=== PATIENT | female | born 1990 | race Caucasian/White ===

== ENCOUNTER 2019-04-25 16:30 | Outpatient (CLI) | payer MEDICAID ==
[~2019-04-25] VITALS: Ht 160 cm; Wt 62.8 kg
[2019-04-25] MEDS ORDERED: PREN-93 PO (17:26)
[2019-04-25] MEDS ORDERED: FERR325T5 PO (17:26)
[2019-04-25 17:27] VITALS: Ht 160 cm; Wt 62.8 kg
[2019-04-25] MEDS ORDERED: CALC600T5 PO (17:27)
[2019-04-25 17:28] VITALS: BP 138/87; PULSE 60; RESP 18
--- NOTE | 2019-04-25 20:13 | PN ---
Triage Information Date/Time Reason for visit: Patient sent from the clinic for evaluation of preeclampsia Weeks of Gestation Patient is a 28-year-old 1 para 0 at 38 weeks and 6 days of gestation with estimated date of delivery May 03, 2019 She presents from the clinic with elevated blood pressures 138/87 Patient denies headache or blurred vision. Patient denies shortness of breath or chest pain denies right upper quadrant pain. She reports of having elevated blood pressures periodically in the last week /Para 1 para 0 Diabetes: none Hypertention: induced Objective Vital Signs Date Temp Pulse Resp B/P (MAP) Pulse Ox O2 O2 Flow FiO2 Time Delivery Rate 04/25/19 98.8 60 18 138/87 Room Air 17:28 (104) Heart Rate: 140's Heart Rate Comments heart rate tracing category 1 Contractions: None Results/Medications Result Diagram: 04/25/19 1743 04/25/19 1743 Results 24 hrs Laboratory Tests Test 04/25/19 17:43 04/25/19 18:00 White Blood Count 9.0 Red Blood Count 3.98 L Hemoglobin 12.4 Hematocrit 36.5 L Mean Corpuscular Volume 91.7 Mean Corpuscular Hemoglobin 31.2 Mean Corpuscular Hemoglobin Concent 34.0 Red Cell Distribution Width 13.1 Platelet Count 233 Mean Platelet Volume 11.1 H Immature Granulocytes % 0.700 H Neutrophils % 74.9 Lymphocytes % 18.9 Monocytes % 5.0 Eosinophils % 0.2 Basophils % 0.3 Nucleated Red Blood Cells % 0.0 Immature Granulocytes # 0.060 H Neutrophils # 6.7 Lymphocytes # 1.7 Monocytes # 0.5 Eosinophils # 0.0 Basophils # 0.0 Nucleated Red Blood Cells # 0.0 Prothrombin Time 11.9 Prothrombin Time Ratio 0.9 INR International Normalized Ratio 0.87 Activated Partial Thromboplast Time 25.6 Fibrinogen 411.0 Sodium Level 136 Potassium Level 3.9 Chloride Level 104 Carbon Dioxide Level 20 L Anion Gap 12 Blood Urea Nitrogen 12 Creatinine 0.62 Est Glomerular Filtrat Rate mL/min > 60 Glucose Level 91 Uric Acid 6.0 Calcium Level 9.4 Total Bilirubin 0.3 Direct Bilirubin 0.00 Indirect Bilirubin 0.3 Aspartate Amino Transf (AST/SGOT) 23 Alanine Aminotransferase (ALT/SGPT) 16 Alkaline Phosphatase 208 H Total Protein 6.9 Albumin 3.6 Globulin 3.30 H Albumin/Globulin Ratio 1.09 Urine Color YELLOW Urine Clarity CLEAR Urine pH 7.0 Urine Specific [place] 1.011 Urine Ketones NEGATIVE Urine Nitrite NEGATIVE Urine Bilirubin NEGATIVE Urine Urobilinogen NEGATIVE Urine Leukocyte Esterase NEGATIVE Urine Hemoglobin NEGATIVE Urine Glucose NEGATIVE Urine Total Protein NEGATIVE Imaging Results PROCEDURE: US OB. CLINICAL INDICATION: Size and dates , hypertension TECHNIQUE: Multiple sonographic images of the pelvis and gravid uterus were obtained. The images were reviewed on a PACS workstation. COMPARISON: No prior studies are available for comparison. FINDINGS: Gestation: Single live intrauterine gestation. Cardiac activity: 146 beats per minute. Presentation: Vertex. Placenta: Location: Fundal Appearance: No previa or abruption. Measurements: BPD = 9.5 cm, 38 weeks and 6 days HC = 33.6 cm, 38 weeks and 3 days AC = 34.1 cm, 38 weeks and 0 days FL = 7.5 cm, 38 weeks and 4 days Gestational Age: AUA estimated gestational age: 38 weeks 3 days LMP estimated gestational age: 38 weeks 6 days AUA estimated date of delivery: 05/06/19 The EFW = 3448 g, 53.8%ile based on LMP age. RPTAT: AA IMPRESSION: Single live intrauterine gestation of 38 weeks 3 days by ultrasound criteria. .Durga Gamez MD, Date Time Electronically viewed and signed by .Durga Gamez MD, MD on 04/25/2019 17:46 .S/ CC: TERESA GRANADOS MD [phone] PROCEDURE: US OB biophysical profile. CLINICAL INDICATION: decreased movements, hypertension TECHNIQUE: Multiple sonographic images of the pelvis were obtained. The bryant ges were reviewed on a PACS workstation. COMPARISON: No prior studies are available for comparison. FINDINGS: There is a single live intrauterine gestation. Cardiac activity is present with 148 beats per minute. There is a vertex presentation. The placenta is anterior fundal. There is no evidence of placental abruption. MANISH = 13.4 cm. Biophysical profile: movement 2/2 tone 2/2. breathing 2/2 MANISH 2/2 Total 06/22 RPTAT: AA . IMPRESSION: Normal biophysical profile. . .Durga Gamez MD, MD Date Time Electronically viewed and signed by .Durga Gamez MD, on 04/25/2019 17:50 .S/ CC: TERESA GRANADOS MD [phone] Disposition: Discharge Assessment/Plan I discussed with the patient in details that I recommend for her to be admitted and to be induced but the patient declines to be admitted at this time She alternatively agreed to do a 24-hour urine protein collection and return in 24-48 hours for BPP and NST and blood pressure recheck and possible induction Prescription for labetalol 100 mg p.o. twice daily was given She was instructed in details to return immediately if she develops headache, blurry vision, chest pain or right upper quadrant pain or blood pressures of greater than 140/90 kick count instructions were given Labor precautions were given Patient has agreed to return in 24-48 hours for follow-up TRACIE MCDONALD MD Apr 25, 2019 20:13
--- NOTE | 2019-04-25 20:27 | TRIAGE ---
OB Triage Datetime Report Generated by CPN: 04/25/2019 20:26 Datetime: 04/25/2019 19:46 Stage of : OB Triage Datetime: 04/25/2019 19:32 Labor Evaluation Frequency: 0 Pattern: Normal: <= 5 Contractions in 10 Minutes Resting Tone [place]: Relaxed Heart Rate FHR Baseline Rate: 140 Monitor Mode: External US Variability: Moderate 6-25 bpm Accelerations: 10X10 Decelerations: None Category: Category I Pain Assessment Pain Scale: 0 Pain Presence: None/Denies Pain Type: N/A Pain Goal: 3 Pain Relief Measures: Comfort Measures Datetime: 04/25/2019 18:24 Labor Evaluation Frequency: 0 Monitor Mode: External Pattern: Normal: <= 5 Contractions in 10 Minutes Resting Tone [place]: Relaxed Heart Rate FHR Baseline Rate: 145 Monitor Mode: External US Variability: Moderate 6-25 bpm Accelerations: None Decelerations: None Category: Category I Pain Assessment Pain Scale: 0 Pain Presence: None/Denies Pain Type: N/A Pain Goal: 3 Pain Relief Measures: Comfort Measures Datetime: 04/25/2019 17:45 Stage of : OB Triage Assessment Type: Triage Maternal Assessment Level of Consciousness: Keenly Alert, Responsive DTR's/Clonus: DTRs 2+; No Clonus Headache: Denies Blurred Vision: No Respiratory Effort: Unlabored; Regular Rhythm; Equal Expansion Breath Sounds, Left: Clear and Equal Breath Sounds, Right: Clear and Equal Nausea/Vomiting: Denies RUQ Epigastric Pain: Denies Facial Edema: None Temperature Route: Axillary Fall Risk Assessment History of Falling: (0) No Secondary Diagnosis: (0) No Ambulatory Aid: (0) Bedrest/Nurse Assist IV Therapy: (0) No Gait: (0) Normal/Bedrest/Immobile Mental Status: (0) Oriented to Own Ability Fall Score: 0 Fall Risk Score Definition: No Risk: No action required Labor Evaluation Frequency: 0 Monitor Mode: External Pattern: Normal: <= 5 Contractions in 10 Minutes Resting Tone [place]: Relaxed Heart Rate FHR Baseline Rate: 145 Monitor Mode: External US Variability: Moderate 6-25 bpm Accelerations: 10X10 Decelerations: None Category: Category I Pain Assessment Pain Scale: 0 Pain Presence: None/Denies Pain Type: N/A Pain Goal: 3 Pain Relief Measures: Comfort Measures Datetime: 04/25/2019 17:43 Time of Arrival: 04/25/2019 16:22 EGA: 38.6 Arrived By: Ambulatory Arrived From: Home Chief Complaint: REFERRED FROM OFFICE FOR PIH, DENIES H/A, BLURRY VISION AND EPIGASTRIC PAIN, DENIE S UC'S, BLEEDING OR LEAKING Movement: Present Contractions: Denies/Absent Rupture of Membranes: Denies Vaginal Bleeding: None Vaginal Discharge: Denies Recent Sexual Intercouse: Denies Abdominal Trauma: Not Applicable Patient Complaints: None Time Provider Notified: 04/25/2019 19:46 Provider Notified: joseph Initial Plan: MONITOR, PIH PANEL, BPP, EFW
== END 2019-04-25 20:16 | disposition home or self-care (01) ==
LOC: L-D 16:30 → OBT 16:30 → L-D 17:58 → OBT 20:16
PROVIDERS: ATTEND Obstetrics & Gynecology
DX: O14.93 Unspecified pre-eclampsia, third trimester (principal); O13.3 Gestational [pregnancy-induced] hypertension without significant proteinuria, third trimester; Z3A.38 38 weeks gestation of pregnancy
CPT/HCPCS: 76815; 76818; 80053; 81003; 84560; 85025; 85384; 85610; 85730; Z7500; G0463

== ENCOUNTER 2019-04-28 14:50 | Outpatient (CLI) | payer MEDICAID ==
[~2019-04-28] VITALS: Ht 160 cm; Wt 62.8 kg
[~2019-04-28 14:50] MED LIST: CALC600T5 PO; FERR325T5 PO; PREN-93 PO
[2019-04-28 15:14] VITALS: BP 119/84; PULSE 65; RESP 18; Ht 160 cm; Wt 62.8 kg
[2019-04-28] MEDS ORDERED: LABE100T7 PO (15:16)
--- NOTE | 2019-04-28 19:52 | HP ---
Date/Time of Note Date/Time of Note DATE: 04/28/19 TIME: 19:49 OB - History Hx of Present Free Text/Dictation 28-year-old 1 para 0 at 39 weeks and 2 days of gestation with estimated date of delivery May 03, 2019 Patient presents after 24-hour urine protein collection which is 270 She is currently on labetalol 100 mg p.o. twice daily for gestational hypertension She reports positive movement, denies vaginal bleeding and leaking fluid, denies uterine contractions GBS status is Estimated Due Date: May 03, 2019 : 1 Para: 0 Care: Good Care Obstetrical Complications: Gestational Hypertension Past Family/Social History * Past Medical, Surgical, Family and Obstetric Histories reviewed from chart. OB Admission Exam Vital Signs Vital Signs Vital Signs Date Temp Pulse Resp B/P (MAP) Pulse Ox O2 O2 Flow FiO2 Time Delivery Rate 04/28/19 98.0 65 18 119/84 15:14 (96) Physical Exam HEENT: WNL Heart: Rhythm Normal Lungs: Clear, Equal Abdomen: WNL Extremities: Normal Reflexes: Normal Cervical Dilatation: None Membranes: Intact Heart Rate: 140's Accelerations: Accelerations Present Decelerations: No Decelerations Varibility: Moderate Contractions on Admission: None Last 72 hours Lab Results CBC & BMP 04/28/19 16:30 Liver Function Test 04/28/19 16:30 Alanine Aminotransferase (ALT/SGPT) 22 Albumin 3.7 Alkaline Phosphatase 210 H Aspartate Amino Transf (AST/SGOT) 39 Direct Bilirubin 0.00 Total Protein 7.2 Urine Results - 72 Hrs Test 04/28/19 14:30 Urine Random Creatinine 21.49 mg/dl (20-320) Urine Collection Duration 24 hrs Urine Total Volume 24 Hours 1500 ml/24hrs Urine Creatinine Timed 24 hrs Creatinine Clearance 36.1 mls/min (84.0-162.0) L Urine Total Volume (Protein) 1500 mls Urine Total Protein 24 Hour 270.0 mg/24hrs (42.0-225.0) H PROCEDURE: US OB. CLINICAL INDICATION: Hypertension TECHNIQUE: Multiple sonographic images of the pelvis were obtained. The images were reviewed on a PACS workstation. COMPARISON: 04/25/2019 FINDINGS: There is a single live intrauterine . cardiac activity is identified at a rate of 150 beats per minute. presentation is cephalic. Placenta is anterior grade II. Biophysical profile score is as follows: Breathing 2 Movements 2 Tone 2 Fluid volume 2 Amniotic fluid index = 11 cm Total biophysical profile score = 8/8 IMPRESSION: Biophysical profile score = 8/8 RPTAT: HH .Brant Buck MD, MD Date Time Electronically viewed and signed by .Brant Buck MD, MD on 04/28/2019 16:01 .W/ CC: LUCIANA HAWLEY MD [phone] PROCEDURE: US OB. CLINICAL INDICATION: Size and dates , hypertension TECHNIQUE: Multiple sonographic images of the pelvis and gravid uterus were obtained. The images were reviewed on a PACS workstation. COMPARISON: No prior studies are available for comparison. FINDINGS: Gestation: Single live intrauterine gestation. Cardiac activity: 146 beats per minute. Presentation: Vertex. Placenta: Location: Fundal Appearance: No previa or abruption. Measurements: BPD = 9.5 cm, 38 weeks and 6 days HC = 33.6 cm, 38 weeks and 3 days AC = 34.1 cm, 38 weeks and 0 days FL = 7.5 cm, 38 weeks and 4 days Gestational Age: AUA estimated gestational age: 38 weeks 3 days LMP estimated gestational age: 38 weeks 6 days AUA estimated date of delivery: 05/06/19 The EFW = 3448 g, 53.8%ile based on LMP age. RPTAT: AA IMPRESSION: Single live intrauterine gestation of 38 weeks 3 days by ultrasound criteria. .Durga Gamez MD, Date Time Electronically viewed and signed by .Durga Gamez MD, on 04/25/2019 17:46 .S/ CC: TERESA GRANADOS MD [phone] OB Assessment/Plan Reason for admission: other (Induction for gestational hypertension) Induction Method: per Misoprostol Protocol Other plan: Admit to labor and delivery Induction for gestational hypertension per protocol Continue with labetalol 100 mg p.o. twice daily Pain meds as needed Patient decided to leave AGAINST MEDICAL ADVICE despite the recommendation made by me and Dr. Hawley for her to stay and to be induced Charge nurse Clyde and the electrician powerhouse were informed Patient agreed to return tomorrow for NST and BPP Copies To: CC: TERESA GRANADOS MD ; TRACIE MCDONALD MD Apr 28, 2019 19:52
== END 2019-04-28 20:50 | disposition left against medical advice (07) ==
LOC: OBT 14:50 → L-D 14:51 → OBT 20:50
PROVIDERS: ATTEND Obstetrics & Gynecology
DX: O13.3 Gestational [pregnancy-induced] hypertension without significant proteinuria, third trimester (principal); Z3A.39 39 weeks gestation of pregnancy
CPT/HCPCS: 76818; 80053; 82575; 84156; 84560; 85025; 85384; 85610; 85730; Z7500; G0463

== ENCOUNTER 2019-04-30 06:40 | Inpatient (IN) | payer MEDICAID ==
[~2019-04-30] VITALS: Ht 162.6 cm; Wt 63.6 kg
[~2019-04-30 06:40] MED LIST changes: +LABE100T7 PO
[2019-04-30 07:23] VITALS: Ht 162.6 cm; Wt 63.6 kg
[2019-04-30 07:24] VITALS: BP 138/97; PULSE 67
[2019-04-30] MEDS ORDERED: OXYTOCIN 30 UNITS/LR 500 ML IV SCH ×4 (07:30→22:59)
[2019-04-30] MEDS ORDERED: CARBOPROST 250 MCG INJ IM PRN ×2 (07:30→23:00)
[2019-04-30] MEDS ORDERED: MISOPROSTOL 200 MCG TAB PR PRN ×2 (07:30→23:00)
[2019-04-30] MEDS ORDERED: OXYTOCIN 30 UNITS/LR 500 ML IV PRN ×2 (07:30→23:00)
[2019-04-30] MEDS ORDERED: METHYLERGONOVINE 0.2 MG INJ IM PRN ×2 (07:30→23:00)
[2019-04-30] MEDS ORDERED: LIDOCAINE 1% (MPF) 30 ML INJ INJ PRN (07:30)
--- NOTE | 2019-04-30 07:33 | TRIAGE ---
OB Triage Datetime Report Generated by CPN: 04/30/2019 07:33 Datetime: 04/30/2019 07:00 Membrane Status: Ruptured Datetime: 04/30/2019 06:55 Vaginal Exam Dilatation (cms): 2.0 Effacement (%): 80 Station: -1 Exam By: Luis F VELEZ Membrane Status: Ruptured Membranes Ruptured Date/Time: 04/30/2019 05:50 Membranes Rupture Method: Spontaneous Amniotic Fluid Color: Clear Vaginal Bleeding: Normal Show Nitrazine: Positive Datetime: 04/30/2019 06:49 Stage of : OB Triage Maternal Assessment Level of Consciousness: Keenly Alert, Responsive DTR's/Clonus: DTRs 2+; No Clonus Headache: Denies Blurred Vision: No Respiratory Effort: Unlabored; Regular Rhythm; Equal Expansion Breath Sounds, Left: Clear and Equal Breath Sounds, Right: Clear and Equal Nausea/Vomiting: Denies RUQ Epigastric Pain: Denies Lower Extremities Edema: None Degree: None Upper Extremities Edema: None Degree: None Facial Edema: None Temperature Route: Oral Fall Risk Assessment History of Falling: (0) No Secondary Diagnosis: (0) No Ambulatory Aid: (0) Bedrest/Nurse Assist IV Therapy: (0) No Gait: (0) Normal/Bedrest/Immobile Mental Status: (0) Oriented to Own Ability Pain Assessment Pain Scale: 5 Datetime: 04/30/2019 06:30 Time of Arrival: 04/30/2019 06:30 EGA: 39.4 Arrived By: Wheelchair Arrived From: Home Chief Complaint: SROM AT 0550 Movement: Present Contractions: Irregular Time Contractions Began: 04/30/2019 05:50 Rupture of Membranes: Ruptured Vaginal Bleeding: Normal Show Vaginal Discharge: Present Recent Sexual Intercouse: Denies Abdominal Trauma: Not Applicable Patient Complaints: Other Time Provider Notified: 04/30/2019 07:15 Provider Notified: DR. MULLEN Initial Plan: ZAHEER SUE, CALL OB Datetime: 04/28/2019 20:29 Labor Evaluation Frequency: Occasional Monitor Mode: External Duration (sec)2399: 40-70 Quality: Mild Pattern: Normal: <= 5 Contractions in 10 Minutes Resting Tone Gratis: Relaxed Heart Rate FHR Baseline Rate: 145 Monitor Mode: External US FHR Baseline Changes: No Baseline Change Variability: Moderate 6-25 bpm Accelerations: 15X15 Decelerations: None Category: Category I Datetime: 04/28/2019 19:50 Labor Evaluation Frequency: Occasional Monitor Mode: External Duration (sec)2399: 40-50 Quality: Mild Pattern: Normal: <= 5 Contractions in 10 Minutes Resting Tone Gratis: Relaxed Heart Rate FHR Baseline Rate: 145 Monitor Mode: External US Variability: Moderate 6-25 bpm Accelerations: 15X15 Decelerations: possible decel @1910 - unable to determine when uc was Datetime: 04/28/2019 19:21 Stage of : OB Triage Datetime: 04/28/2019 19:15 Stage of : OB Triage Datetime: 04/28/2019 18:31 Stage of : OB Triage Datetime: 04/28/2019 18:12 Labor Evaluation Frequency: 0 Monitor Mode: External Pattern: Normal: <= 5 Contractions in 10 Minutes Resting Tone [place]at[place]: Relaxed Heart Rate FHR Baseline Rate: 140 Monitor Mode: External US Variability: Moderate 6-25 bpm Accelerations: None Decelerations: None Category: Category II Pain Assessment Pain Scale: 0 Pain Presence: None/Denies Pain Type: N/A Pain Goal: 3 Pain Relief Measures: Comfort Measures Datetime: 04/28/2019 17:39 Stage of : OB Triage Datetime: 04/28/2019 17:10 Labor Evaluation Frequency: 0 Monitor Mode: External Pattern: Normal: <= 5 Contractions in 10 Minutes Resting Tone [place]at[place]: Relaxed Heart Rate FHR Baseline Rate: 145 Monitor Mode: External US Variability: Moderate 6-25 bpm Accelerations: None Decelerations: Variable Category: Category II Pain Assessment Pain Scale: 0 Pain Presence: None/Denies Pain Type: N/A Pain Goal: 3 Pain Relief Measures: Comfort Measures Datetime: 04/28/2019 16:12 Labor Evaluation Frequency: 0 Monitor Mode: External Pattern: Normal: <= 5 Contractions in 10 Minutes Resting Tone [place]at[place]: Relaxed Heart Rate FHR Baseline Rate: 145 Monitor Mode: External US Variability: Moderate 6-25 bpm Accelerations: 10X10 Decelerations: None Category: Category I Pain Assessment Pain Scale: 0 Pain Presence: None/Denies Pain Type: N/A Pain Goal: 3 Pain Relief Measures: Comfort Measures Datetime: 04/28/2019 15:34 Labor Evaluation Frequency: x1 Monitor Mode: External Duration (sec)2399: 60 Quality: Mild Pattern: Normal: <= 5 Contractions in 10 Minutes Resting Tone [place]at[place]: Relaxed Heart Rate FHR Baseline Rate: 150 Monitor Mode: External US Variability: Moderate 6-25 bpm Accelerations: 10X10 Decelerations: None Category: Category I Pain Assessment Pain Scale: 0 Pain Presence: None/Denies Pain Type: N/A Pain Goal: 3 Pain Relief Measures: Comfort Measures Datetime: 04/28/2019 15:10 Assessment Type: Triage Time of Arrival: 04/28/2019 14:46 EGA: 39.2 Arrived By: Ambulatory Arrived From: Home Chief Complaint: Pt. back to ob triage with 24hr urine collection Movement: Present Contractions: Denies/Absent Rupture of Membranes: Denies Vaginal Bleeding: None Vaginal Discharge: Denies Recent Sexual Intercouse: Denies Abdominal Trauma: Not Applicable Patient Complaints: None Maternal Assessment Level of Consciousness: Keenly Alert, Responsive DTR's/Clonus: DTRs 2+; No Clonus Headache: Denies Blurred Vision: No Respiratory Effort: Unlabored; Regular Rhythm; Equal Expansion Breath Sounds, Left: Clear and Equal Breath Sounds, Right: Clear and Equal Nausea/Vomiting: Denies RUQ Epigastric Pain: Denies Lower Extremities Edema: None Degree: None Upper Extremities Edema: None Degree: None Facial Edema: None Fall Risk Assessment History of Falling: (0) No Secondary Diagnosis: (0) No Ambulatory Aid: (0) Bedrest/Nurse Assist IV Therapy: (0) No Gait: (0) Normal/Bedrest/Immobile Mental Status: (0) Oriented to Own Ability Fall Score: 0 Fall Risk Score Definition: No Risk: No action required Datetime: 04/25/2019 17:45 Fall Score: 0 Fall Risk Score Definition: No Risk: No action required Datetime: 04/25/2019 17:43 EGA: 38.6
[2019-04-30] MEDS ORDERED: AMPICILLIN 2 GM/NS (PMX) 100 ML IVPB ONE (09:30)
[2019-04-30] MEDS: LACTATED RINGER'S 1,000 ML IV SCH ×2 (09:32→18:20)
[2019-04-30] MEDS ORDERED: OXYTOCIN 30 UNITS/LR 500 ML BAG IV ONE (10:01)
--- NOTE | 2019-04-30 10:01 | HP ---
Date/Time of Note Date/Time of Note DATE: 04/30/19 TIME: 09:59 OB - History Hx of Present Free Text/Dictation 39+wks GA Genstational HTN : 1 Para: 0 Care: Good Care Ultrasounds: Normal mid trimester US Obstetrical Complications: Gestational Hypertension Medical Complications: None Past Family/Social History * Past Medical, Surgical, Family and Obstetric Histories reviewed from chart. OB Admission Exam Vital Signs Vital Signs Vital Signs Date Temp Pulse Resp B/P (MAP) Pulse Ox O2 O2 Flow FiO2 Time Delivery Rate 04/30/19 98.3 67 138/97 Room Air 07:24 (111) Physical Exam Cervical Dilatation: 2cm Effacement: 75% Station: -1 Membranes: Intact Heart Rate: 140's Accelerations: Accelerations Present Decelerations: No Decelerations Varibility: Moderate Contractions on Admission: 6-10 Minutes Apart Last 72 hours Lab Results CBC & BMP 04/30/19 09:00 OB Assessment/Plan Reason for admission: observation Other Assessment: PMH gestation HTN PSH Denies Plan: Expectant Management KARINA MULLEN M.D. Apr 30, 2019 10:00
[2019-04-30] MEDS ORDERED: FENTAnyl 2MCG/ML-ROPIV 0.2% 100 ML ONE (12:38)
[2019-04-30] MEDS ORDERED: AMPICILLIN 1 GM/NS (PMX) 50 ML IVPB SCH (13:00)
--- NOTE | 2019-04-30 13:15 | PREAC ---
Date/Time of Note Date/Time of Note DATE: 04/30/19 TIME: 13:13 Anesthesia Eval and Record Evaluation Time Pre-Procedure Interview DATE: 04/30/19 TIME: 13:13 Age 28 Sex female NPO: 8 hrs Preoperative diagnosis IUP Planned procedure L&D Epidural Past Medical History Past Medical History: Includes Cardio: HTN : : Surgery & Anesthesia Issues No known issue Meds Anticoagulation: No Beta Pk within 24 hr: Yes Reported Medications Labetalol Hcl* (Labetalol Hcl*) 100 Mg Tablet, 100 MG PO BID, TAB 04/28/19 Calcium Carbonate (CALCIUM) 600 Mg Tablet, 600 MG PO DAILY, TAB 04/25/19 Ferrous Sulfate (Ferrous Sulfate) 325 Mg Tablet.dr, 325 MG PO DAILY 04/25/19 Vit No.124/Iron/FA ( Vitamin Tablet) 1 Each Tablet, 1 EACH PO DAILY, TAB 04/25/19 Current Medications Lidocaine (Xylocaine 1% (Mpf)) 30 ml ONCE PRN INJ .EPISIOTOMY; Start 04/30/19 at 07:30 Oxytocin/Lactated Ringer's 500 ml @ 500 mls/hr ONCE POST IV ; Start 04/30/19 at 07:30 Oxytocin/Lactated Ringer's 500 ml @ 125 mls/hr POST IV ; Start 04/30/19 at 07:30 Oxytocin/Lactated Ringer's 500 ml @ 0 mls/hr ONCE PRN IV .VAGINAL BLEEDING; Start 04/30/19 at 07:30 Methylergonovine Maleate (Methergine) 0.2 mg ONCE PRN IM .VAGINAL BLEEDING; Start 04/30/19 at 07:30 Carboprost Tromethamine (Hemabate) 250 mcg ONCE PRN IM .VAGINAL BLEEDING; Start 04/30/19 at 07:30 Misoprostol (Cytotec) 1,000 mcg ONCE PRN NV .VAGINAL BLEEDING; Start 04/30/19 at 07:30 Oxytocin/Lactated Ringer's 500 ml @ 0 mls/hr Q0M IV ; Start 04/30/19 at 07:30 Ampicillin 50 ml @ 100 mls/hr Q4 IVPB ; Start 04/30/19 at 13:00 Lactated Ringer's 1,000 ml @ 125 mls/hr Q8H IV Last administered on 04/30/19at 09:32; Admin Dose 125 MLS/HR; Start 04/30/19 at 09:30 Meds reviewed: Yes Allergies Coded Allergies: No Known Allergy (Unverified , 04/30/19) Allergies Reviewed: Yes Labs/Studies Labs Reviewed: Reviewed by anesthesiologist Result Diagram: 04/30/19 0900 04/30/19 0900 Laboratory Tests 04/30/19 09:00 Blood Bank Test 04/30/19 09:00 Antibody Screen NEGATIVE Blood Type O POSITIVE Rh Immune Globulin Candidate NO test: Positive Studies: ECG Pre-procedure Exam Last vitals Vital Signs Date Temp Pulse Resp B/P (MAP) Pulse Ox O2 O2 Flow FiO2 Time Delivery Rate 04/30/19 98.3 67 138/97 Room Air 07:24 (111) Airway: Adequate mouth opening, Adequate thyromental dist Mallampati: Mallampati II Teeth: Normal Lung: Normal Heart: Normal ASA Physical Status ASA physical status: 2 Emergency: None Planned Anesthetic Neuraxial: Epidural Planned Pain Management Epidural Pre-operative Attestations Prior to commencing anesthesia and surgery, the patient was re-evaluated, there was verification of: *The patient's identity *The results of appropriate recent lab work and preoperative vital signs *The above evaluation not changing prior to induction *Anesthetic plan, risk benefits, alternative and complications discussed with patient/family; questions answered; patient/family understands, accepts and wishes to proceed. JENNIFER GRAJEDA MD Apr 30, 2019 13:15
[2019-04-30] MEDS ORDERED: DIPHENHYDRAMINE 50 MG INJ IV PRN ×2 (13:30→23:00)
[2019-04-30] MEDS ORDERED: FENTAnyl 2MCG/ML-ROPIV 0.2% 100 ML BAG EPI SCH (13:30)
[2019-04-30] MEDS ORDERED: NALOXONE (0.4 MG/ML) INJ IV PRN (13:30)
[2019-04-30] MEDS ORDERED: ONDANSETRON 4 MG INJ IV PRN ×3 (13:30→23:00)
[2019-04-30] MEDS ORDERED: AMPICILLIN 2 GM/NS (PMX) 100 ML ONE (19:29)
[2019-04-30] MEDS ORDERED: MINERAL OIL LIGHT 10 ML VIAL TOP ONE (19:30)
[2019-04-30] MEDS ORDERED: IBUPROFEN 600 MG TAB PO ONE (21:30)
[2019-04-30] MEDS ORDERED: MIDAZOLAM 1 MG/ML 2 ML INJ ONE (22:01)
[2019-04-30] MEDS ORDERED: KETAMINE (100 MG/ML) 5 ML VIAL ONE (22:01)
[2019-04-30] MEDS ORDERED: FENTAnyl 50 MCG/ML VIAL ONE (22:01)
[2019-04-30] MEDS ORDERED: PHENYLephrine 10 MG INJ ONE ×2 (22:16→22:41)
--- NOTE | 2019-04-30 22:56 | PAC ---
Date/Time of Note Date/Time of Note DATE: 04/30/19 TIME: 22:55 Post-Anesthesia Notes Post-Anesthesia Note Last documented vital signs Vital Signs Date Temp Pulse Resp B/P (MAP) Pulse Ox O2 O2 Flow FiO2 Time Delivery Rate 04/30/19 98.3 67 138/97 Room Air 07:24 (111) Activity: WNL Respiratory function: WNL Cardiovascular function: WNL Mental status: Baseline Pain reasonably controlled: Yes Hydration appropriate: Yes Nausea/Vomiting absent: Yes Comments BP:112/56, P:78, Spo2:100%, T:98,8 JENNIFER GRAJEDA MD Apr 30, 2019 22:56
[2019-04-30] MEDS ORDERED: LACTATED RINGER'S 1,000 ML IV* SCH (22:59)
[2019-04-30] MEDS ORDERED: FENTAnyl 50 MCG/ML VIAL IV PRN (23:00)
[2019-04-30] MEDS ORDERED: DIBUCAINE 1% 30 GM OINT TOP PRN (23:00)
[2019-04-30] MEDS ORDERED: MAGNESIUM HYDROXIDE 30ML CUP PO PRN (23:00)
[2019-04-30] MEDS ORDERED: MEPERIDINE 25 MG INJ IV PRN (23:00)
[2019-04-30] MEDS ORDERED: ALBUMIN HUMAN 5% 250 ML IV PRN (23:00)
[2019-04-30] MEDS ORDERED: WITCH HAZEL/GLYCERIN PAD PR PRN (23:00)
[2019-04-30] MEDS ORDERED: BENZOCAINE 20% 56 ML SPRAY TOP PRN (23:00)
[2019-04-30] MEDS ORDERED: METOCLOPRAMIDE 10 MG INJ IV PRN (23:00)
[2019-04-30] MEDS ORDERED: EPHEDrine 25 MG/5 ML SYG IV PRN (23:00)
[2019-04-30] MEDS ORDERED: LANOLIN HPA 1 PKT TOP PRN (23:00)
[2019-04-30] MEDS ORDERED: morphine 2 MG INJ IV PRN (23:00)
[2019-04-30] MEDS ORDERED: OXYCODONE/ACETAMINOPHEN (5/325) TAB PO PRN (23:00)
[2019-04-30] MEDS ORDERED: SENNA/DOCUSATE NA (8.6MG/50MG) TAB PO PRN (23:00)
[2019-04-30] MEDS ORDERED: ACETAMINOPHEN 325 MG TAB PO PRN ×2 (23:00)
--- NOTE | 2019-04-30 23:47 | LDN ---
Date/Time of Note Date/Time of Note DATE: 04/30/19 TIME: 23:43 Delivery Summary Term gestation Placenta Delivered: Spontaneously Meconium: none Episiotomy: No Laceration repair: Second-degree laceration repair with 2-0 Vicryl in layered fashion Anesthesia type: Epidural Estimated blood loss: 200 Sponge & Needle done & correct: Yes All needle counts correct: Yes Any foreign bodies felt in the: No Infant Delivery Information Sex Sex: male Apgars 1 Minute: 9 5 Minute: 9 Suctioning Nose & mouth suctioned at stephanie: Yes Delee suction performed: No Umbilical Cord Umbilical cord with: 3 Vessels Cord presentations: nuchal cord (X1 around the neck manually reduced) Cord Blood was obtained: Yes Mother & Baby Disposition Disposition Baby's weight 7 pounds 3 ounces/ 3260 g Mom & Baby to Maternity; Good: Yes Baby to NICU: No Copies To: CC: TERESA GRANADOS MD ; TRACIE MCDONALD MD Apr 30, 2019 23:47
[2019-05-01] VITALS (14 sets, daily range): BP systolic 101–118; BP diastolic 59–77; PULSE 80–102; RESP 16–19
[2019-05-01] MEDS ORDERED: PIPER-TAZO 3.375 GM IV (PMX) 100 ML IVPB SCH
--- NOTE | 2019-05-01 00:01 | OPR ---
Date/Time of Note Date/Time of Note DATE: 04/30/19 TIME: 23:49 Operative Report Procedure Date: Apr 30, 2019 Preoperative Diagnosis Patient was noted to have hemorrhage and the nurse called out for evaluation by a MD I was performing an emergency on another patient and Dr. Pace who was the second physician estate conservator evaluated the patient Patient was examined by Dr. Pace and was noted to have a uterine inversion Therefore patient was taken back to the operating room immediately Patient had received oxytocin IV, Cytotec 1000 mcg per rectum and Hemabate IM x1 dose for hemorrhage in the delivery room Postoperative Diagnosis Uterine inversion Operation/Procedure Performed Manual replacement of the uterus under anesthesia and Second-degree perineal laceration repair Surgeon see signature line Plaster Die Maker Dr. Pace Anesthesia Type: other (Nitrous oxide) Anesthesiologist: JENNIFER GRAJEDA MD Estimated Blood Loss: other (1156cc total including EBL at delivery) Transfusion none Specimen pathology Grafts/Implants none Complications none Pt Condition Post Procedure: stable Disposition: PACU Procedure Description Patient was taken to the operating room and after adequate amount of anesthesia was given patient was placed in dorsal lithotomy and Trendelenburg position Pelvic exam was performed under anesthesia and uterus was noted to be inverted Gently and gradually the uterus was manually replaced back in its proper position Oxytocin IV was given The fundus of the uterus was noted to be firm and the lower uterine segment and the cervix also noted to be firm and contracted well after manual replacement Patient had no further bleeding At this time the second-degree perineal laceration was repaired completely Excellent hemostasis was noted Patient tolerated the procedure well and taken back to recovery room in a stable condition Total EBL 1156cc (including EBL at delivery) Total IV fluid 500 cc Urine output 150 cc by straight cath Copies To: CC: TERESA GRANADOS MD ; TRACIE MCDONALD MD May 01, 2019 00:01
[2019-05-01] MEDS: PIPER-TAZO 3.375 GM IV (PMX) 100 ML IVPB SCH ×4 (01:22→22:32)
[2019-05-01] MEDS: LACTATED RINGER'S 1,000 ML IV SCH ×3 (01:30→17:30)
--- NOTE | 2019-05-01 01:35 | QN ---
Documentation Comment Please note while I was doing the delivery for this patient I was called for an emergency on another patient. Dr. Pace who was on second call had already been contacted for assistance While I was performing the emergency on the other patient, I was notified by the nurse regarding this patient's hemorrhage Dr Pace was available and therefore able to evaluate the patient immediately and proceed to the OR immediately TRACIE MCDONALD MD May 01, 2019 01:35
[2019-05-01] MEDS ORDERED: VANCOMYCIN IV PER PHARMACY XX SCH (04:30)
[2019-05-01] MEDS ORDERED: VANCOMYCIN HCL 1.25 GM in SOD CHLORIDE 0.9% 250 ML IVPB SCH (05:30)
[2019-05-01] MEDS ORDERED: CEFAZOLIN 1 GM/50 ML (PMX) 50 ML IVPB SCH (06:00)
[2019-05-01] MEDS ORDERED: CLINDAMYCIN 900 MG/D5W (PMX) 50 ML IVPB SCH (06:00)
[2019-05-01] MEDS ORDERED: ACETAMINOPHEN 325 MG TAB PO ONE (06:30)
[2019-05-01] MEDS ORDERED: DIPHENHYDRAMINE 25 MG CAP PO ONE (06:30)
--- NOTE | 2019-05-01 09:36 | QN ---
Documentation Comment progress note patient seen and evaluated. aao X 3 no complaints no headache, n/v,sob , visual changes, epigastric pain, no palpitation vs stable afebrile ab soft, nt, uterine fundus firm extremity no edema no calf tenderness a/ sp vaginal delivery with uterine inversion manual replacement ppd 1 stable afebrile anemia p/ ordered 2 units of prbc for acute blood loss continue to monitor patient closely TERESA GRANADOS MD May 01, 2019 09:36
[2019-05-01] MEDS: IBUPROFEN 600 MG TAB PO PRN (17:45)
[2019-05-01] MEDS: VANCOMYCIN 1 GM 250 ML IVPB SCH (17:46)
[2019-05-02] MEDS: LACTATED RINGER'S 1,000 ML IV SCH ×3 (01:30→17:30)
[2019-05-02 03:29] VITALS: BP 105/55; PULSE 75; RESP 18
[2019-05-02] MEDS: IBUPROFEN 600 MG TAB PO PRN ×2 (04:51→15:04)
[2019-05-02] MEDS: PIPER-TAZO 3.375 GM IV (PMX) 100 ML IVPB SCH ×3 (05:25→22:32)
[2019-05-02] MEDS: VANCOMYCIN 1 GM 250 ML IVPB SCH ×2 (06:25→17:45)
[2019-05-02 08:00] VITALS: BP 118/84; PULSE 70; RESP 18
[2019-05-02 17:05] VITALS: BP 102/69; PULSE 78; RESP 18
--- NOTE | 2019-05-02 17:54 | QN ---
Documentation Comment progress note ppd 2 patient seen and evaluated. aao X 3 no complaints no headache, n/v,sob , visual changes, epigastric pain, no palpitation vs stable afebrile ab soft, nt, uterine fundus firm extremity no edema no calf tenderness a/ sp vaginal delivery with uterine inversion manual replacement ppd 2 stable afebrile asymptomatic anemia, received 2 units of prbc for acute blood loss elevated wbc p/ infectious disease consult Dr. Quinteros repeat cbc in am iron supplement TREESA GRANADOS MD May 02, 2019 17:54
[2019-05-02 19:35] VITALS: BP 114/85; PULSE 70; RESP 18
[2019-05-02] MEDS: FERROUS SULFATE (EC) 325 MG TAB PO SCH (21:30)
[2019-05-03] MEDS: LACTATED RINGER'S 1,000 ML IV SCH (01:30)
[2019-05-03 03:35] VITALS: BP 112/84; PULSE 70; RESP 19
[2019-05-03] MEDS: PIPER-TAZO 3.375 GM IV (PMX) 100 ML IVPB SCH (05:23)
[2019-05-03] MEDS: VANCOMYCIN 1 GM 250 ML IVPB SCH (06:44)
[2019-05-03 08:00] VITALS: BP 116/68; PULSE 74; RESP 18
[2019-05-03] MEDS: FERROUS SULFATE (EC) 325 MG TAB PO SCH ×2 (09:57→14:11)
--- NOTE | 2019-05-03 11:10 | CONS ---
DATE OF ADMISSION: 04/30/2019 DATE OF CONSULTATION: 05/02/2019 TYPE OF CONSULTATION: Infectious Disease. REASON FOR CONSULTATION: Antibiotic management. HISTORY OF PRESENT ILLNESS: The patient is a 28-year-old female, 1, 39 weeks' on ad mission with gestational hypertension, who comes in with no other medical problems. Her cervical dil atation was 2 cm, effacement 75%. White count 7.7, hemoglobin and hematocrit 13.6 and 41, platelet c ount 257,000. The patient underwent labor and delivery on 04/30/2019 secondary degree laceration wit h repair. She had an epidural. Baby was healthy 7 pounds 3 ounces, of 9. She was noted to carreon ve a hemorrhage. She had a uterine inversion. The patient was taken back to the operatin g room immediately and received oxytocin. She had manual replacement of the uterus under anesthesia and second degree perineal laceration repair by Dr. Granados and Dr. Pace. The uterus was gradual ly and manually replaced in its proper position. It contracted well after manual replacement. There was no further bleeding. Hemostasis was noted. The patient is stable. She had asymptomatic anemia , received 2 units of packed red blood cells for acute loss. Her white count, however, remains eleva millicent at 20.3, hemoglobin and hematocrit of 7.4 and 21.8, platelet count of 31,000 with 85% neutrophils . Urine was completely negative. RPR was nonreactive. Chest x-ray revealed no acute cardiopulmonary disease. X-ray of the abdomen showed Daily catheter ov er the bladder. The patient was started on vancomycin and Zosyn for elevated white count. Blood cul tures were done on the . Urine culture also done and is pending. PAST MEDICAL HISTORY: As outlined. FAMILY HISTORY: Noncontributory. PHYSICAL EXAMINATION: GENERAL: She is a well-developed, well-nourished female who is alert, responsive, in no acute distress. VITAL SIGNS: Stable. She is afebrile. SKIN: Without generalized rash. HEENT: Within normal limits. NECK: Supple. LYMPH NODES: None palpable. CHEST: Decreased breath sounds at the bases. HEART: Without murmur or gallop. ABDOMEN: Soft, nontender, without organosplenomegaly or masses. EXTREMITIES: Without cyanosis, clubbing, or edema. RECTAL AND GENITAL: Deferred. NEUROLOGIC: No focal neurological abnormality. IMPRESSION AND PLAN: The patient was started on antibiotics because of elevated white count, which c ould be stress related. Blood cultures and urine cultures so far are negative. We will continue her on current therapy. I will dictate my findings to Dr. Granados and we will continue her on vancomy bolivar and Zosyn. Dictated By: RONEY BECKETT MD, JD/NTS Conf#: [id number] DID#: [id number] CC: RONEY BECKETT MD; TERESA GRANADOS MD; JUAN R DYER MD;*End*
--- NOTE | 2019-05-03 12:59 | QN ---
Documentation Comment progress note ppd 2 patient seen and evaluated. aao X 3 no complaints no headache, n/v,sob , visual changes, epigastric pain, no palpitation vs stable afebrile ab soft, nt, uterine fundus firm extremity no edema no calf tenderness a/ sp vaginal delivery with uterine inversion manual replacement ppd 3 stable afebrile asymptomatic anemia, received 2 units of prbc for acute blood loss elevated wnl and cleared by ID p/ discharge home today TERESA GRANADOS MD May 03, 2019 12:59
--- NOTE | 2019-05-03 13:02 | PD.PPDC ---
MISSING PERSONS INVESTIGATOR Discharge Instruction Condition [id number] Patient Condition: Qpptl7j Fair Diet [id number] Diet: Anohx3d Resume Regular Diet Activity/Restrictions Lepaz5Mi Activity: Iogit8f Normal Activity May Shower Follow-up Follow-up with Physician: 2, Week/Weeks Return to clinic for [id number] BUSINESS SYSTEMS ADMINISTRATOR Instructions: Wfngp9y Fever greater than 101 Chills Worsening abdominal pain Excessive Vaginal Bleeding More than 2 pads per hour Unable to tolerate diet [id number] OB Instructions: Bvfcn0n Breast Tenderness Depression Blurried Vision Headache Tpvds3Mg Surgical Instructions: Pablq5j Incisional Drainage Incisional Redness TERESA GRANADOS MD May 03, 2019 13:02
--- NOTE | 2019-05-03 16:03 | CONS ---
Assessment/Plan Assessment/Plan Hospital Course (Demo Recall) 1230 Patient is alert feels good denies pain no fevers no nausea vomiting diarrhea she ambulated earlier WBC today 11.5 no shift no bands BUN 12 creatinine 0.82 Microbiology blood and urine culture remain negative Physical examination: Well-developed well-nourished middle-age woman who is alert in no distress. Head atraumatic normocephalic neck is supple chest rise symmetrical breath sounds clear heart: S1-S2 abdomen soft bowel sounds present extremities without cyanosis Assessment: 1. Reactive leukocytosis, no evidence of acute infectious process 2. Gestational hypertension 3. Status post vaginal delivery Plan: Patient is doing well will discontinue antibiotics and monitor her, continue present care per primary team Consultation Date/Type/Reason Admit Date/Time Apr 30, 2019 at 06:50 Initial Consult Date Type of Consult id Date/Time of Note DATE: 05/03/19 TIME: 16:03 Exam/Review of Systems Exam Vitals Vital Signs Date Temp Pulse Resp B/P (MAP) Pulse Ox O2 O2 Flow FiO2 Time Delivery Rate 05/03/19 98.2 74 18 116/68 Room Air 08:00 (84) 05/01/19 98 08:00 Intake and Output 05/02/19 05/02/19 05/03/19 1515:00 23:00 07:00 IntakeIntake Total 250 ml 350 ml 100 ml OutputOutput Total 850 ml BalanceBalance -600 ml 350 ml 100 ml Results Result Diagram: 05/03/19 1152 05/01/19 0113 Results 24hrs Laboratory Tests Test 05/02/19 17:03 05/03/19 07:17 05/03/19 07:34 05/03/19 09:50 Vancomycin Level 12.2 Trough Lab Scanned REFERENCE LAB BLOOD TRANSFUSI Report ON White Blood 11.5 #H Count Red Blood Count 2.28 L Hemoglobin 6.7 *L Hematocrit 20.2 L Mean Corpuscular 88.6 Volume Mean Corpuscular 29.4 Hemoglobin Mean Corpuscular 33.2 Hemoglobin Fela nt Red Cell 14.9 H Distribution Width Platelet Count 151 Mean Platelet 10.6 H Volume Immature 0.700 H Granulocytes % Neutrophils % 76.8 Lymphocytes % 18.7 Monocytes % 2.9 Eosinophils % 0.6 Basophils % 0.3 Nucleated Red 0.0 Blood Cells % Immature 0.080 H Granulocytes # Neutrophils # 8.8 H Lymphocytes # 2.2 Monocytes # 0.3 Eosinophils # 0.1 Basophils # 0.0 Nucleated Red 0.0 Blood Cells # Test 05/03/19 11:52 Hemoglobin 7.3 L Hematocrit 21.3 L SILVIA NEGRETE NP May 03, 2019 16:03
--- NOTE | 2019-05-04 14:11 | DS ---
DATE OF ADMISSION: 04/30/2019 DATE OF DISCHARGE: 05/03/2019 PRIMARY DIAGNOSES: 1. Intrauterine , at term. 2. Normal spontaneous vaginal delivery. SECONDARY DIAGNOSIS: hemorrhage secondary to uterine inversion. CONDITION ON DISCHARGE: Stable. ACTIVITY: None per vagina, no lifting x6 weeks. DIET: Regular. MEDICATIONS ON DISCHARGE: 1. Motrin. 2. Iron. 3. Colace. DISCHARGE SUMMARY: Ms. Mahajan was admitted on 04/30/2019 secondary to in labor. She had a normal spont aneous vaginal delivery on 04/30/2019 with a viable male, 9 and 9 respectively at 1 and 5 minut es complicated by a hemorrhage secondary to uterine inversion. The patient was taken to t he OR and had manual replacement of uterine inversion and was given 2 units of packed RBCs secondary to acute blood loss. Currently, her hemoglobin and hematocrit is stable and she denies any headache, nausea, vomiting, shortness of breath, visual changes. Infectious Disease was also called secondary to elevated white blood cell. However, it is within normal now and cleared by infectious disease sp ecialist for discharge and also the patient was given IV antibiotics and . The patient will follow up in the office in 2 to 3 weeks for followup. Dictated By: TERESA GRANADOS MD ME/NTS Conf#: [id number] DID#: [id number] CC: TERESA GRANADOS MD;*EndCC*
--- NOTE | 2019-05-04 15:16 | DELSUM ---
Delivery Summary A-C Datetime Report Generated by CPN: 05/04/2019 15:16 DELIVERY PERSONNEL Brim Pouncer: Corbin, Jocelyn MATERNAL INFORMATION Delivery Anesthesia: Epidural Medications in Delivery: 30 UNITS PITOCIN IN 500ML LR, 1000MCG CYTOTEC TX Delivery QBL (ml): 100 Placenta Cultured: No Maternal Complications: Hemorrhage LABOR SUMMARY EDC: 05/03/2019 00:00 No. Babies in Womb: 1 Attempted: No Labor Anesthesia: Epidural LABOR INFORMATION Onset of Labor: 04/30/2019 07:00 Complete Dilatation: 04/30/2019 19:31 Oxytocin: N/A Group B Beta Strep: Negative Antibiotics # of Doses: X1 Antibiotics Time of Last Dose: 04/30/2019 19:30 Steroids Given: None Reason Steroids Not Administered: Not Applicable MEMBRANES Membranes Rupture Method: Spontaneous Rupture of Membranes: 04/30/2019 05:50 Length of Rupture (hr): 14.80 Amniotic Fluid Color: Clear Amniotic Fluid Amount: Small Amniotic Fluid Odor: None STAGES OF LABOR Stage 1 hr: 12 Stage 1 min: 31 Stage 2 hr: 1 Stage 2 min: 7 Stage 3 hr: 0 Stage 3 min: 7 Total Time in Labor hr: 13 Total Time in Labor min: 45 VAGINAL DELIVERY Episiotomy: None Laceration Extension: Second Degree Laceration Type: Perineal Laceration Repair: Yes Initial Vag Sponge Count: 10 Final Vag Sponge Count: 10 Initial Vag Sharps Count: 1 Final Vag Sharps Count: 3 Sponge Count Correct: Yes; Vaginal Sweep Performed Sharps Count Correct: Yes BABY A INFORMATION Delivery Date/Time: 04/30/2019 20:38 Method of Delivery: Vaginal Born in Route : No : N/A Forceps: N/A Vacuum Extraction: N/A Shoulder Dystocia : N/A SHOULDER DYSTOCIA BABY A Infant Delivery Date/Time: 04/30/2019 20:38 PRESENTATION/POSITION BABY A Presentation: Cephalic Cephalic Presentation: Vertex Vertex Position: Right Occipital Anterior Breech Presentation: N/A PLACENTA INFORMATION BABY A Placenta Delivery Time : 04/30/2019 20:45 Placenta Method of Delivery: Spontaneous Placenta Status: Delivered SCORES BABY A Heart Rate 1 min: >100 bpm Resp Effort 1 min: Good Cry Reflex Irritability 1 min: Cough/Sneeze/Pulls Away Muscle Tone 1 min: Active Motion Color 1 min: Body [place], Extremit Blue Resuscitation Effort 1 min: Tactile Stimulation SCORE 1 MIN: 9 Heart Rate 5 min: >100 bpm Resp Effort 5 min: Good Cry Reflex Irritability 5 min: Cough/Sneeze/Pulls Away Muscle Tone 5 min: Active Motion Color 5 min: Body [place], Extremit Blue Resuscitation Effort 5 min: Tactile Stimulation SCORE 5 MIN: 9 INFORMATION BABY A Gestational Age at Delivery: 39.3 Gestational Status: Full Term- 39- 40.6 Weeks Outcome : Liveborn Condition : Stable Infant Sex: Male IDENTIFICATION/MEDS BABY A ID Band Number: [id number] ID Band Location: Right Leg; Left Arm Sensor Applied: Yes Sensor Number: [id number] Sensor Location : Cord Clamp Vitamin K Given : Not Given Erythromycin Given: Not Given WEIGHT/LENGTH BABY A Infant Birthweight (gm): 3260 Infant Weight (lb): 7 Infant Weight (oz): 3 Infant Length (in): 19.50 Infant Length (cm): 49.53 CORD INFORMATION BABY A No. Cord Vessels: 3 Nuchal Cord : Around Neck x1, Loose Cord Blood Taken: Yes Infant Suction: Mouth; Nose ASSESSMENT BABY A Infant Complications: None Physical Findings at Delivery: Within Normal Limits Infant Respirations: Appears Normal Intervention Specialist/ALS Called : No Infant Care By: ARTURO PARTIDA Transferred To: Remains with Mother
--- NOTE | 2019-05-06 15:15 | QN ---
Documentation Comment 2nd director of manufacturing operations Laborist called for evaluation of a pt that was having heavy bleeding. The pt was a 31 y.o. G1 with an IUP at 39w 4d who had delivered a 3260 gram baby. Shortly after delivery and after the delivering doctor started to stitch the perineum the doctor was called for an emergency c/s. This pt continued to bleed and was given pitocin, cytotec 1,000 mcg and a dose of Hemabate and continued to bleed. I had been called in to assist with the emergency but as they were finishing up when I arrived I was asked to evaluate the pt who was bleeding. When asking questions about the delivery the doctor said that the uterus prolapsed some with the delivery of the placenta but then retracted back up. Upon evaluation of the pt it was noted that she had a complete uterine inversion. The uterus was very firm due to all of the medications that she had received. The situation was explained to the pt and her spouse and the spouse and baby were brought up to the 3rd floor nursery. She was transported to the OR. The anesthesiologist was rapidly available at the completion of the . He placed the pt under IV sedation, administered Nitrous gas. The uterus was replaced by pushing the fundus gently and then waiting for the uterus to relax around it and then continuing to push some more, over and over until the uterus was replaced in it's proper position. The Nitrous gas was turned off and pitocin given and another 200 mcg of Cytotec and waited u ntil the uterus began to contract. Bleeding was now at a minimum. Adequate antibiotic coverage was strongly recommended. Dr Ortega repaired the perineum. The was notified that the pt was doing well. Total measured EBL 1200 ml but could have been more. MICHAEL AMEZCUA MD May 06, 2019 15:08
== END 2019-05-03 14:20 | disposition home or self-care (01) | DRG 807 ==
LOC: OBT 06:40 → L-D 06:40 → OBT 06:50 → L-D 07:42 → PP1 05-01 03:03
PROVIDERS: ADMIT Obstetrics & Gynecology Obstetrics; ATTEND Obstetrics & Gynecology
PROC: 10E0XZZ Delivery of Products of Conception, External Approach (ICD-10-PCS; principal; 2019-04-30)
PROC: 0KQM0ZZ Repair Perineum Muscle, Open Approach (ICD-10-PCS; 2019-04-30)
PROC: 0US9XZZ Reposition Uterus, External Approach (ICD-10-PCS; 2019-04-30)
DX: O13.4 Gestational [pregnancy-induced] hypertension without significant proteinuria, complicating childbirth (principal); Z37.0 Single live birth; Z3A.39 39 weeks gestation of pregnancy; O70.1 Second degree perineal laceration during delivery; O69.81X0 Labor and delivery complicated by cord around neck, without compression, not applicable or unspecified; O72.1 Other immediate postpartum hemorrhage; O71.2 Postpartum inversion of uterus
CPT/HCPCS: 36430; 62322; 71045; 74018; 76815; 80053; 80202; 81003; 83605; 84560; 85014; 85018; 85025; 85384; 85610; 85730; 86592; 86850; 86900; 86901; 86920; 87086; 88307; G0463; J0290; J2250; J2370; J2543; J2590; J3010; J3370; J7050; J7120; J7999; P9016